=== PATIENT | male | born 1955 | race Caucasian/White ===

== ENCOUNTER 2022-10-03 06:09 | Observation (INO) | payer MEDICARE, OTHER ==
[2022-10-03] MEDS ORDERED: fentaNYL PF 100 MCG/2 ML SYRINGE ONE (07:11)
[2022-10-03] MEDS ORDERED: CEFAZOLIN 2 GM VIAL ONE (07:15)
[2022-10-03] MEDS ORDERED: Rocuronium Bromide 10 MG/ML (10ML VIAL) ONE (07:32)
[2022-10-03] MEDS ORDERED: Dexamethasone 20 MG/5 ML VIAL ONE (07:32)
[2022-10-03] MEDS ORDERED: Glycopyrrolate 0.2 MG/ML 5 ML SYRINGE ONE (07:32)
[2022-10-03] MEDS ORDERED: PROPOFOL 200 MG/20 ML VIAL ONE (07:32)
[2022-10-03] MEDS ORDERED: NEOSTIGMINE 3 MG/3 ML SYR 3 MG/3 ML SYRINGE ONE (07:32)
[2022-10-03] MEDS ORDERED: Ondansetron PF 4 MG/2 ML Vial ONE (07:32)
[2022-10-03] MEDS ORDERED: ePHEDrine 50 MG/ML VIAL ONE (07:32)
[2022-10-03] MEDS ORDERED: Meperidine HCl/PF 25 MG/ML VIAL SLOW IVP PRN (08:24)
[2022-10-03] MEDS ORDERED: Promethazine HCl 25 MG/ML VIAL IVPB PRN (08:24)
[2022-10-03] MEDS ORDERED: PACU-Morphine 4MG/ML VIAL SLOW IVP PRN (08:24)
[2022-10-03] MEDS ORDERED: traMADol HCl 50 MG TAB PO PRN (08:57)
[2022-10-03] MEDS ORDERED: Mag-Al 1200 mg/1200 mg/30 ML UDCUP PO PRN (08:57)
[2022-10-03] MEDS ORDERED: Acetaminophen/Codeine 30-300mg Tablet PO PRN (08:57)
[2022-10-03] MEDS ORDERED: Cyclobenzaprine 10 MG TAB PO PRN (08:57)
[2022-10-03] MEDS ORDERED: Ondansetron PF 4 MG/2 ML Vial IVP PRN (08:57)
[2022-10-03] MEDS ORDERED: diphenhydrAMINE 25 MG CAP PO PRN (08:57)
[2022-10-03] MEDS ORDERED: Milk Of Magnesia 30 ML UDCUP PO PRN (08:57)
[2022-10-03] MEDS ORDERED: Promethazine 25 MG TAB PO PRN (08:57)
[2022-10-03] MEDS ORDERED: Dextrose 50% Abboject 50 ML SYRINGE SLOW IVP PRN (09:00)
[2022-10-03] MEDS ORDERED: Dextrose 5% in Water 1,000 ML IV PRN (09:00)
[2022-10-03] MEDS ORDERED: HumaLOG 300 UNITS/3 ML VIAL SC PRN (09:00)
[2022-10-03] MEDS ORDERED: Morphine 4 MG/ML VIAL SLOW IVP PRN (09:05)
[2022-10-03] MEDS ORDERED: FENTANYL 50 MCG/ML 1 ML VIAL ONE ×5 (09:28→10:11)
[2022-10-03] MEDS ORDERED: Tamsulosin HCl 0.4 MG CAP ONE (09:43)
[2022-10-03 11:09] VITALS: BMI 29.4
[2022-10-03] MEDS: CEFAZOLIN 2 GM in Sodium Chloride 0.9% 100 ML IVPB SCH ×2 (11:10→18:03)
[2022-10-03] MEDS: Acetaminophen/Codeine 30-300mg Tablet PO PRN ×2 (11:42→16:49)
[2022-10-03] MEDS: Sodium Chloride 0.9% 1,000 ML IV SCH ×2 (14:26→23:26)
[2022-10-03] MEDS: Polyvinyl Alcohol 1.4%/Povidone 0.6% Opth Drops EA EYE SCH ×2 (15:17→21:34)
[2022-10-03] MEDS ORDERED: Cepastat Lozenges 1 LOZ PO PRN (15:53)
[2022-10-03] MEDS ORDERED: Atorvastatin Calcium 10 MG TAB PO SCH (21:00)
[2022-10-03] MEDS ORDERED: Pregabalin 50 MG CAP PO SCH (21:00)
[2022-10-04] MEDS: CEFAZOLIN 2 GM in Sodium Chloride 0.9% 100 ML IVPB SCH ×2 (01:01→08:34)
[2022-10-04] MEDS: Acetaminophen/Codeine 30-300mg Tablet PO PRN ×2 (01:43→08:33)
[2022-10-04 05:27] LABS: #Basophils 0.1 thou/uL (0.0-0.2); #Lymphocytes 1.6 thou/uL (1.20-3.40); #Monocytes 0.9 thou/uL (0.11-0.59); #Neutrophils 8.8 thou/uL (1.40-6.50); %Basophils 0.8 % (0.0-1.0); %Eosinophils 0.3 % (0.0-10.0); %Lymphocytes 13.8 % (21.0-51.0); %Monocytes 7.9 % (0.0-10.0); %Neutrophils 77.3 % (42.0-75.0); Hemoglobin 14.6 g/dL (14.0-18.0); Mean Corpuscular HGB CONC 33.8 g/dL (32.0-36.0); Mean Corpuscular Hemoglobin 30.4 pg (27.0-31.0); Mean Platelet Volume 7.4 fL (7.4-10.4); Platelet Count 206 10x3/uL (130-400); Red Blood Cell (RBC) Count 4.79 mill/uL (4.70-6.10); White Blood Cell (WBC) Count 11.4 10x3/uL (4.8-10.8)
[2022-10-04] MEDS ORDERED: Tamsulosin HCl 0.4 MG CAP PO SCH (06:00)
[2022-10-04 06:32] LABS: Anion Gap 13 mmol/L (10-20); BUN (Urea Nitrogen) 14 mg/dL (8.4-25.7); Calc. Creatinine Clearance 139 mL/min (70-130); Calcium 8.9 mg/dL (7.8-10.44); Carbon Dioxide 24 mmol/L (23-31); Chloride 104 mmol/L (98-107); Estimated GFR 97; Glucose 137 mg/dL (80-115); Potassium 3.8 mmol/L (3.5-5.1); Sodium 137 mmol/L (136-145)
[2022-10-04] MEDS ORDERED: metFORMIN 500 MG TAB PO SCH (08:00)
[2022-10-04] MEDS: Polyvinyl Alcohol 1.4%/Povidone 0.6% Opth Drops EA EYE SCH (08:32)
[2022-10-04] MEDS ORDERED: Empagliflozin 10 MG TAB PO SCH (09:00)
[2022-10-04] MEDS: Sodium Chloride 0.9% 1,000 ML IV SCH (10:53)
[2022-10-04 11:54] VITALS: BP 115/56; TEMP 98.6
== END 2022-10-04 14:05 | disposition home or self-care (01) ==
LOC: SDC 06:09 → MSONC 10:47
PROVIDERS: ADMIT Neurological Surgery; ATTEND Neurological Surgery
PROC: 0SG1071 Fusion of 2 or more Lumbar Vertebral Joints with Autologous Tissue Substitute, Posterior Approach, Posterior Column, Open Approach (ICD-10-PCS; principal; 2022-10-03)
DX: M48.062 Spinal stenosis, lumbar region with neurogenic claudication (principal); M47.816 Spondylosis without myelopathy or radiculopathy, lumbar region; M19.90 Unspecified osteoarthritis, unspecified site; E11.9 Type 2 diabetes mellitus without complications; E78.5 Hyperlipidemia, unspecified; J45.909 Unspecified asthma, uncomplicated; I10 Essential (primary) hypertension; H53.8 Other visual disturbances; Z87.891 Personal history of nicotine dependence; Z86.16 Personal history of COVID-19; Z79.82 Long term (current) use of aspirin; Z79.84 Long term (current) use of oral hypoglycemic drugs; Z79.899 Other long term (current) drug therapy; Z88.2 Allergy status to sulfonamides; Z20.822 Contact with and (suspected) exposure to COVID-19
CPT/HCPCS: 20930; 20936; 22612; 22614; 22842; 80048; 82962 ×2; 85025; 97530; C1713 ×3; C1768; C1776; J3010; U0003; U0005; 36415; 36416; 96374; 96375; 96376; G0378; J1100; J2270; J2405; J2704; J3370; J3490

== ENCOUNTER 2022-10-18 12:50 | Outpatient (CLI) | payer MEDICARE, OTHER | END 2022-10-18 12:51 | disposition home or self-care (01) | LOC: TBSIIMAG 12:50 | PROVIDERS: ATTEND Neurological Surgery | DX: M48.062 Spinal stenosis, lumbar region with neurogenic claudication (principal); M47.816 Spondylosis without myelopathy or radiculopathy, lumbar region; Z98.890 Other specified postprocedural states | CPT/HCPCS: 72100 ==

== ENCOUNTER 2022-11-30 13:27 | Outpatient (CLI) | payer MEDICARE, OTHER | END 2022-11-30 13:28 | disposition home or self-care (01) | LOC: TBSIIMAG 13:27 | PROVIDERS: ATTEND Neurological Surgery | DX: M48.062 Spinal stenosis, lumbar region with neurogenic claudication (principal); M47.816 Spondylosis without myelopathy or radiculopathy, lumbar region; Z98.890 Other specified postprocedural states | CPT/HCPCS: 72100 ==